=== PATIENT | female | born 1930 | race Caucasian/White ===

== ENCOUNTER 2017-02-18 07:07 | Day surgery (SDC) | payer MEDICARE, OTHER ==
[~2017-02-18] VITALS: Ht 147.3 cm; Wt 49.1 kg
[~2017-02-18 07:07] MED LIST: ACETAMINOPHEN 325 MG TABLET PO PRN; FentaNYL CITRATE-PF 100 MCG/2 ML VIAL IVP ONE; MIDAZOLAM HCL 2 MG/2 ML VIAL IVP ONE; TETRACAINE HCL 0.5% 2 ML OPHTHALMIC SOLUTION OS ONE
[2017-02-18] MEDS ORDERED: RINGERS SOLUTION,LACTATED 500 ML IV ONE ×2 (07:12→07:30)
[2017-02-18] MEDS ORDERED: GATIFLOXACIN 0.5% 2.5 ML OPHTHALMIC SOLUTION ONE (07:13)
[2017-02-18] MEDS ORDERED: PHENYLEPHRINE HCL 2.5% 2 ML OPHTHALMIC SOLUTION ONE (07:13)
[2017-02-18] MEDS ORDERED: TETRACAINE HCL 0.5% 2 ML OPHTHALMIC SOLUTION ONE (07:13)
[2017-02-18] MEDS ORDERED: DICLOFENAC SODIUM 0.1% 2.5 ML OPHTHALMIC SOLUTION ONE (07:13)
[2017-02-18] MEDS ORDERED: CYCLOPENTOLATE HCL 2% 2 ML OPHTHALMIC SOLUTION ONE (07:13)
[2017-02-18] MEDS ORDERED: AcetaZOLAMIDE 250 MG TABLET PO ONE (07:30)
[2017-02-18] MEDS: PHENYLEPHRINE HCL 2.5% 2 ML OPHTHALMIC SOLUTION OS SCH ×3 (07:34→07:45)
[2017-02-18] MEDS: CYCLOPENTOLATE HCL 2% 2 ML OPHTHALMIC SOLUTION OS SCH ×3 (07:34→07:45)
[2017-02-18] MEDS: GATIFLOXACIN 0.5% 2.5 ML OPHTHALMIC SOLUTION OS SCH ×3 (07:35→07:55)
[2017-02-18] MEDS: DICLOFENAC SODIUM 0.1% 2.5 ML OPHTHALMIC SOLUTION OS SCH ×3 (07:36→07:55)
[2017-02-18] MEDS ORDERED: OMEG100019 PO (07:54)
[2017-02-18] MEDS ORDERED: VITA-328 PO (07:54)
[2017-02-18] MEDS ORDERED: LEVO88TA4 PO (07:54)
[2017-02-18] MEDS ORDERED: FISH1CAP27 PO (07:54)
[2017-02-18] MEDS ORDERED: XALA2.5OS OU (07:54)
[2017-02-18] MEDS ORDERED: ERGO500044 PO (07:54)
[2017-02-18] MEDS ORDERED: AMLO-512 PO (07:54)
[2017-02-18] MEDS ORDERED: COENZQ100 PO (07:54)
[2017-02-18] MEDS ORDERED: GARL1TAB PO (07:54)
[2017-02-18] MEDS ORDERED: CALC-1093 PO (07:54)
[2017-02-18] MEDS ORDERED: ASPI81 PO (07:54)
[2017-02-18] MEDS ORDERED: RALO60 PO (07:54)
[2017-02-18] MEDS ORDERED: DONE10TA PO (07:54)
[2017-02-18] MEDS ORDERED: LISI-662 PO (07:54)
[2017-02-18] MEDS ORDERED: METO100XL PO (07:54)
[2017-02-18] MEDS ORDERED: OMEP20 PO (07:54)
[2017-02-18] MEDS ORDERED: ATOR20TA86 PO (07:54)
[2017-02-18] MEDS ORDERED: AcetaZOLAMIDE 250 MG TABLET ONE (09:40)
[2017-02-18] MEDS ORDERED: LIDOCAINE HCL/PF 1% 2 ML VIAL INJ ONE (12:00)
[2017-02-18] MEDS ORDERED: MOXIFLOXACIN HCL 0.5% 3 ML OPHTHALMIC SOLUTION OS ONE (12:00)
[2017-02-18] MEDS ORDERED: TETRACAINE HCL 0.5% 2 ML OPHTHALMIC SOLUTION OS ONE (12:00)
[2017-02-18] MEDS ORDERED: HYALURONATE SODIUM 12 MG/ML 0.8 ML SYRINGE IO ONE (12:00)
[2017-02-18] MEDS ORDERED: POVIDONE-IODINE 10% 15 ML SOLUTION UD TP ONE (12:00)
[2017-02-18] MEDS ORDERED: TETRACAINE HCL VISCOUS 0.5% 0.6 ML OPHTHALMIC SOLUTION OS ONE (12:00)
[2017-02-18] MEDS ORDERED: EPINEPHrine 1:1,000 [1 MG/ML] AMP IM ONE (12:00)
[2017-02-18] MEDS ORDERED: HYALURONATE SOD/CHONDROITIN SOD 0.5 ML VIAL IO ONE (12:00)
[2017-02-18] MEDS ORDERED: BRIMONIDINE TARTRATE 0.15% 5 ML OPHTHALMIC SOLUTION OS ONE (12:00)
== END 2017-02-18 10:25 | disposition home or self-care (01) ==
LOC: SURGERY 07:07
PROVIDERS: ATTEND Ophthalmology
DX: H26.9 Unspecified cataract (principal); I10 Essential (primary) hypertension; F03.90 Unspecified dementia, unspecified severity, without behavioral disturbance, psychotic disturbance, mood disturbance, and anxiety; Z98.890 Other specified postprocedural states
CPT/HCPCS: 66982; 93005; C1780; J2250; J3010; J7120; J0171; J3490